=== PATIENT | female | born 1965 | race Caucasian/White ===

== ENCOUNTER 2022-08-16 09:41 | Outpatient (CLI) | payer OTHER, SELFPAY ==
[2022-08-16 13:56] LABS: Albumin* 4.3 g/dL (3.3-5.0); Chloride* 106 mmol/L (96-114); Sodium* 142 mmol/L (135-149)
[2022-08-16 13:59] LABS: Alkaline Phosphatase* 101 U/L (40-150); Aspartate Amino Transferase* 27 U/L (12-35); Bilirubin Total* 0.5 mg/dL (0.1-1.5); Blood Urea Nitrogen* 16 mg/dL (7-30); Calcium* 9.3 mg/dL (8.4-10.6); Carbon Dioxide* 30 mmol/L (20-32); Cholesterol* 176 mg/dL (90-199); Creatinine* 0.9 mg/dL (0.5-1.5); Estimated Glomerular Filt Rate 74 ml/min; Glucose* 97 mg/dL (60-115); Potassium* 4.1 mmol/L (3.6-5.1); Total Protein* 7.8 g/dL (6.0-8.3); Triglycerides* 80 mg/dL (40-149)
[2022-08-16 14:00] LABS: Alanine Aminotransferase* 24 U/L (4-35); HDL Cholesterol* 75 mg/dL (>=50); LDL Cholesterol Calculated 85 mg/dL (<100)
== END 2022-08-16 09:42 | disposition home or self-care (01) ==
PROVIDERS: PCP Physician Assistant Medical; Visit Provider Physician Assistant Medical
DX: Z00.00 Encounter for general adult medical examination without abnormal findings (principal); R73.09 Other abnormal glucose; I10 Essential (primary) hypertension; E78.5 Hyperlipidemia, unspecified
CPT/HCPCS: 80053; 80061; 84443

== ENCOUNTER 2022-10-21 13:55 | Outpatient (CLI) | payer OTHER, SELFPAY ==
--- NOTE | 2022-10-21 14:00 | CRLHL7_ITS ---
For Patients: As a result of the Century Cures Act, medical imaging exams and procedure reports are released immediately into your electronic medical record. You may view this report before your referring provider. If you have questions, please contact your health care provider. BILATERAL SCREENING MAMMOGRAM WITH COMPUTER-AIDED DETECTION AND TOMOSYNTHESIS TECHNIQUE: CC and MLO views were obtained. These mammographic images have been obtained using full-field digital technique. These mammographic images were interpreted with the benefit of computer-aided detection. Breast Tomosynthesis was used in this interpretation. COMPARISON FILM: 10/01/21, 04/14/20, 11/28/18. FINDINGS: There are scattered areas of fibroglandular density IMPRESSION: There is no radiographic evidence for malignancy. ASSESSMENT: BI-RADS Category 1: Negative RECOMMENDATION: Routine screening mammogram in 1 year. A lay language report of this examination will be provided to the patient. Sam Purdy M.D. Diagnostic/Nuclear Medicine Radiologist [email or web address] HAKEEM/Dictated by: Sam Purdy MD @ 10/22/2022 8:19:00 AM (Electronically Signed)
== END 2022-10-21 13:56 | disposition home or self-care (01) ==
PROVIDERS: PCP Physician Assistant Medical; Visit Provider Physician Assistant Medical
DX: Z12.31 Encounter for screening mammogram for malignant neoplasm of breast (principal)
CPT/HCPCS: 77063; 77067

== ENCOUNTER 2023-05-23 10:48 | Outpatient (CLI) | payer OTHER, SELFPAY | END 2023-05-23 10:49 | disposition home or self-care (01) | PROVIDERS: PCP Physician Assistant Medical; Visit Provider Physician Assistant Medical | DX: Z00.00 Encounter for general adult medical examination without abnormal findings (principal); E66.9 Obesity, unspecified; E78.5 Hyperlipidemia, unspecified; I10 Essential (primary) hypertension | CPT/HCPCS: 80053; 80061; 84443 ==

== ENCOUNTER 2024-05-12 14:57 | Outpatient (CLI) | payer OTHER, SELFPAY | END 2024-05-12 14:58 | disposition home or self-care (01) | LOC: NFLDREF 05-15 14:55 | PROVIDERS: PCP Physician Assistant Medical; Referring Provider Physician Assistant Medical; Visit Provider Nurse Practitioner Family | DX: K57.92 Diverticulitis of intestine, part unspecified, without perforation or abscess without bleeding (principal); R82.90 Unspecified abnormal findings in urine | CPT/HCPCS: 87086 ==

== ENCOUNTER 2024-06-11 08:01 | Outpatient (CLI) | payer OTHER, SELFPAY | END 2024-06-11 08:02 | disposition home or self-care (01) | PROVIDERS: PCP Physician Assistant Medical; Visit Provider Family Medicine | DX: Z00.00 Encounter for general adult medical examination without abnormal findings (principal); E78.5 Hyperlipidemia, unspecified; I10 Essential (primary) hypertension; M25.50 Pain in unspecified joint; Z13.1 Encounter for screening for diabetes mellitus; Z78.0 Asymptomatic menopausal state; Z11.59 Encounter for screening for other viral diseases; Z87.898 Personal history of other specified conditions | CPT/HCPCS: 80053; 80061; 82043; 82570; 86803 ==

== ENCOUNTER 2024-07-16 08:27 | Outpatient (CLI) | payer OTHER, SELFPAY ==
--- NOTE | 2024-08-07 10:18 | W.PM.SLEEP ---
Sleep Study Details Details Interpreting Provider: Jeffy Date of Sleep Study: 07/16/24 Sleep Study Details: STUDY TYPE:? Home unattended ? BMI:? 35 ORDERING PROVIDER:Earlene Bardales INDICATION:? Concern about sleep apnea ? SLEEP SUMMARY:? 632 minutes monitored RESPIRATORY SUMMARY:? AHI 23.8 Low oxygen 82 46.6% of study oxygen less than 90% Snoring 97.3% PERIODIC LIMB MOVEMENTS OF SLEEP:? Not recorded CARDIAC:? 66-102, mean 76.9 beats per minute IMPRESSION:? Moderate obstructive sleep apnea with significant hypo oxygenation RECOMMENDATION: Treatment options include CPAP, dental appliance, weight loss. Once effective therapy is established overnight oximetry should be performed.
== END 2024-07-16 08:28 | disposition home or self-care (01) ==
LOC: SLEEP 08:27
PROVIDERS: PCP Family Medicine; Visit Provider Otolaryngology
DX: G47.33 Obstructive sleep apnea (adult) (pediatric) (principal)
CPT/HCPCS: 95806

== ENCOUNTER 2024-09-05 14:48 | Outpatient (CLI) | payer OTHER, SELFPAY | END 2024-09-05 14:49 | disposition home or self-care (01) | LOC: MAMMO 14:48 | PROVIDERS: PCP Family Medicine; Visit Provider Family Medicine | DX: Z12.31 Encounter for screening mammogram for malignant neoplasm of breast (principal) | CPT/HCPCS: 77063; 77067 ==

== ENCOUNTER 2025-04-25 13:11 | Outpatient (CLI) | payer OTHER, SELFPAY | END 2025-04-25 13:12 | disposition home or self-care (01) | LOC: NFLDREF 05-02 03:56 | PROVIDERS: PCP Family Medicine; Referring Provider Family Medicine; Visit Provider Family Medicine | DX: Z01.818 Encounter for other preprocedural examination (principal); E78.5 Hyperlipidemia, unspecified; I10 Essential (primary) hypertension; F98.8 Other specified behavioral and emotional disorders with onset usually occurring in childhood and adolescence; F41.9 Anxiety disorder, unspecified; F32.A Depression, unspecified; Z87.898 Personal history of other specified conditions | CPT/HCPCS: 80053; 80061; 82043; 82570 ==